=== PATIENT | male | born 1950 | race Caucasian/White ===

== ENCOUNTER 2017-09-28 13:26 | Emergency (ER) | payer OTHER ==
[2017-09-28] MEDS ORDERED: Sodium Chloride 0.9% 10 ML Syringe FLUSH PRN (13:38)
[2017-09-28] MEDS ORDERED: Furosemide 40 MG/4 ML VIAL IVPUSH ONE (13:39)
[2017-09-28] MEDS ORDERED: Albuterol/Ipratropium 3.0-0.5 MG/3 ML Neb Soln NEB ONE (13:39)
[2017-09-28 14:16] LABS: CHLORIDE,CL 103 mmol/L (98-107); SODIUM,NA 137 mmol/L (136-145)
[2017-09-28] MEDS ORDERED: cefTRIAXone 1 GM in Sodium Chloride 0.9% 100 ML IV ONE ×2 (14:47→16:29)
[2017-09-28] MEDS ORDERED: Azithromycin 500 MG in Sodium Chloride 0.9% 250 ML IV ONE (14:48)
[2017-09-28] MEDS ORDERED: Iopamidol 755 Mg/ML 100 ML Bottle IVPUSH ONE (14:57)
[2017-09-28] MEDS ORDERED: Morphine 10 MG/ML Syringe IVPUSH ONE (14:57)
--- NOTE | 2017-09-28 15:06 | EDM.PDOC ---
ED HPI GENERAL MEDICAL PROBLEM - General Chief Complaint: General Stated Complaint: fever, fall Time Seen by Provider: 09/28/17 13:27 Source of Information: Reports: Patient History Limitations: Reports: Other (vague with HPI/medical history) - History of Present Illness INITIAL COMMENTS - FREE TEXT/NARRATIVE: Patient comes in by EMS for complaint of not feeling well for "weeks". Has chronic daily cough but notes cough is worse today. Has felt chilled over this course of time but no fevers. Feels more SOB today. No report NEW pain today during initial interview after arrival. Does have baseline chronic back pain/ arthritis pain for which he takes Tylenol at home. Does not report increase in chronic pain level. Also reports decreased appetite in general although is now aware of specific weight loss. Has felt weaker in general and fell today at home. Later patient reported having some right hip discomfort despite initially denying any new pain/injuries. Patient is not on any other medications. Lives alone. History of prior CAD. "Nutritional condition". Denies smoking. Admits to drinking, vague on amount. Shrugged shoulders when asked if he drinks a lot of beer. Denies illegal drugs. 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 - Related Data Allergies Allergy/AdvReac Type Severity Reaction Status Date / Time Penicillins Allergy Cannot Verified 09/28/17 13:27 Remember Home Meds: Home Meds Acetaminophen [Tylenol] 325 mg PO Q4H PRN 09/28/17 [History] Past Medical History Cardiovascular History: Reports: Afib, CAD, PVD Respiratory History: Reports: Other (See Below) (Chronic right pleural effusion , chronic intermittent hemoptysis per patient) Gastrointestinal History: Reports: Other (See Below) (Chronic intermittent blood in stool per patient) Psychiatric History: Reports: Addiction (Suspect ETOH abuse) Social & Family History - Tobacco Use Smoking Status *Q: Former Smoker - Alcohol Use Alcohol Use History: Yes Days Per Week of Alcohol Use: 7 Alcohol Use in Last Twelve Months: Yes Alcohol Use Frequency: Daily Alcohol Use Comment: Shrugs shoulders when asked if he drinks excessively. - Living Situation & Occupation Living situation: Reports: Alone ED ROS GENERAL - Review of Systems Review Of Systems: See Below Constitutional: Reports: Chills, Malaise, Weakness, Fatigue, Decreased Appetite. Denies: Fever, Night Sweats, Diaphoresis HEENT: Reports: No Symptoms Respiratory: Reports: Shortness of Breath, Cough, Sputum, Hemoptysis (history of chronic intermittent hemoptysis). Denies: Pleuritic Chest Pain Cardiovascular: Denies: Chest Pain, Edema, Lightheadedness, Palpitations, Syncope GI/Abdominal: Reports: Hematochezia (chronic intermittent hematochezia, followed by [facility]). Denies: Abdominal Pain, Black Stool, Constipation, Diarrhea, Nausea, Vomiting Musculoskeletal: Reports: Other (No acute change on chronic baseline pain) Skin: Reports: Bruising (easily bruises) Neurological: Denies: Confusion, Headache, Numbness, Paresthesia, Tingling, Trouble Speaking, Gait Disturbance Psychiatric: Reports: No Symptoms Hematologic/Lymphatic: Reports: Easy Bruising Free Text/Narrative/Comment: After denying pain initially, patient later complained of right hip discomfort from his earlier fall to nurses after initial exam performed. ED EXAM, GENERAL - Physical Exam Exam: See Below Exam Limited By: No Limitations General Appearance: Alert, Other (poor personal hygiene, on oxygen, no acute distress) Eye Exam: Bilateral Eye: EOMI, PERRL Ears: Normal External Exam Nose: No: Nasal Deformity, Nasal Swelling, Nasal Drainage Throat/Mouth: Normal Lips, Normal Voice, No Airway Compromise, Other (poor dentition) Head: Atraumatic, Normocephalic Neck: Normal Inspection, Supple, Non-Tender, Full Range of Motion. No: Carotid Bruit, Lymphadenopathy (L), Lymphadenopathy (R) Respiratory/Chest: Chest Non-Tender, Crackles (bilateral), Rhonchi (bilateral), Wheezing (bilateral). No: Stridor, Accessory Muscle Use, Retractions Cardiovascular: Normal Peripheral Pulses, Regular Rate, Rhythm, No Edema, No Murmur Peripheral Pulses: 1+: Radial (L), Radial (R), Dorsalis Pedis (L), Dorsalis Pedis (R) GI/Abdominal: Normal Bowel Sounds, Soft, Non-Tender, No Distention (Male) Exam: Other (redness/rash noted around scrotal area) Rectal (Males) Exam: Deferred Back Exam: Normal Inspection. No: CVA Tenderness (L), CVA Tenderness (R) Extremities: Normal Range of Motion, Non-Tender, Normal Capillary Refill, Pedal Edema (bilateral, pittinng), Slow Capillary Refill (lower legs/feet), Increased Warmth (very mild, bilateral lower legs), Redness (bilateral lower legs/feet, patient says this is "normal" level of redness for him), Other (able to move both right and left leg, no focal tenderness noted pelvis/hips/thighs with palpation). No: Clement's Sign Neurological: Alert, Oriented, Normal Cognition, No Motor/Sensory Deficits Psychiatric: Normal Affect, Normal Mood Skin Exam: Warm, Dry, Intact, Ecchymosis (scattered bruises arms/hands), Erythema (bilateral lower extremities/groin area), Increased Warmth (very mild, lower legs) EKG INTERPRETATION EKG Date: 09/28/17 Time: 16:10 Rhythm: A-Fib Rate (Beats/Min): 137 P-Wave: Variable QRS: Other (small amplitude) ST-T: Other (no obvious ST elevation) Comparison: NA - No Prior EKG Course - Vital Signs Last Recorded V/S: Last Vital Signs Temp 38.3 C H 09/28/17 13:35 Pulse 64 09/28/17 13:35 Resp 20 09/28/17 13:35 BP 101/56 L 09/28/17 13:35 Pulse Ox 64 L 09/28/17 13:35 - Orders/Labs/Meds Orders: Active Orders 24 hr Category Date Time Status EKG Documentation Completion [RC] ASDIRECTED Care 09/28/17 16:03 Ordered RT Aerosol Therapy [RC] ASDIRECTED Care 09/28/17 13:40 Active RT Aerosol Therapy [RC] ASDIRECTED Care 09/28/17 15:06 Active Chest 2V [CR] Stat Exams 09/28/17 13:38 Ordered Hip Min 2V or 3V Rt [CR] Stat Exams 09/28/17 13:40 Taken PE Chest [Ang Chest] [CT] Stat Exams 09/28/17 14:52 Ordered CULTURE BLOOD [BC] Stat Lab 09/28/17 16:28 Ordered Albuterol/Ipratropium [DuoNeb 3.0-0.5 MG/3 ML] Med 09/28/17 15:15 Active 3 ml NEB Q1H Sodium Chloride 0.9% [Normal Saline] 1,000 ml Med 09/28/17 16:30 Ordered IV .BOLUS Sodium Chloride 0.9% [Normal Saline] 500 ml Med 09/28/17 15:30 Ordered IV .BOLUS Sodium Chloride 0.9% [Saline Flush] Med 09/28/17 13:38 Active 10 ml FLUSH ASDIRECTED PRN cefTRIAXone [Rocephin] 1 gm Med 09/28/17 16:29 Ordered Sodium Chloride 0.9% [Normal Saline] 100 ml IV ONETIME Blood Culture x2 Reflex Set [OM.PC] Stat Oth 09/28/17 16:28 Ordered Saline Lock Insert [OM.PC] Routine Oth 09/28/17 13:38 Ordered EKG 12 Lead [EK] Stat Ther 09/28/17 16:03 Ordered Medication Orders Albuterol/Ipratropium (Duoneb 3.0-0.5 Mg/3 Ml) 3 ml NEB Q1H KRYSTA Last Admin: 09/28/17 15:26 Dose: 3 ml Sodium Chloride (Normal Saline) 500 mls @ 999 mls/hr IV .BOLUS KRYSTA Last Admin: 09/28/17 15:38 Dose: 999 mls/hr Ceftriaxone Sodium 1 gm/ (Sodium Chloride) 100 mls @ 200 mls/hr IV ONETIME ONE Stop: 09/28/17 16:58 Last Admin: 09/28/17 16:43 Dose: 200 mls/hr Sodium Chloride (Normal Saline) 1,000 mls @ 999 mls/hr IV .BOLUS ONE Stop: 09/28/17 17:30 Last Admin: 09/28/17 16:34 Dose: 999 mls/hr Sodium Chloride (Saline Flush) 10 ml FLUSH ASDIRECTED PRN PRN Reason: Keep Vein Open Labs: Laboratory Tests 09/28/17 09/28/17 09/28/17 Range/Units 13:40 13:50 13:50 WBC 11.5 H (4.0-10.2) K/uL RBC 4.13 L (4.33-5.41) M/uL Hgb 12.8 L (13.1-16.8) g/dL Hct 38.1 L (39.0-49.0) % MCV 92.3 (84.0-98.0) fL MCH 31.0 (28.2-33.3) pg MCHC 33.6 (31.7-36.0) g/dL RDW 15.8 H (11.2-14.1) % Plt Count 153 (150-350) K/uL Neut % (Auto) 91.5 H (45.0-80.0) % Lymph % (Auto) 0.9 L (10.0-50.0) % [place] % (Auto) 7.5 (2.0-14.0) % Eos % (Auto) 0.0 (0.0-5.0) % Baso % (Auto) 0.1 (0.0-2.0) % Neut # (Auto) 10.52 H (1.40-7.00) K/uL Lymph # (Auto) 0.10 L (0.50-3.50) K/uL [place] # (Auto) 0.86 (0.00-1.00) K/uL Eos # (Auto) 0.00 (0.00-0.50) K/uL Baso # (Auto) 0.01 (0.00-0.20) K/uL PT (9.8-11.7) SEC INR D-Dimer, Quantitative (0-400) ng/mL Sodium 137 (136-145) mmol/L Potassium 3.4 L (3.5-5.1) mmol/L Chloride 103 (98-107) mmol/L Carbon Dioxide 22.7 (21.0-32.0) mmol/L BUN 6 L (7-18) mg/dL Creatinine 0.78 (0.51-1.17) mg/dL Est Cr Clr Drug Dosing 83.57 mL/min Estimated GFR (MDRD) > 60 mL/min Glucose 83 (74-106) mg/dL Lactic Acid (0.4-2.0) mmol/L Calcium 7.7 L (8.5-10.1) mg/dL Total Bilirubin 2.0 H (0.2-1.0) mg/dL AST 21 (15-37) U/L ALT 17 (12-78) U/L Alkaline Phosphatase 153 H (46-116) IU/L NT-Pro-B Natriuret Pep 2673 H (0-125) pg/mL Total Protein 6.7 (6.4-8.2) g/dL Albumin 2.5 L (3.4-5.0) g/dL Ethyl Alcohol 0.000 (0.000-0.080) g/dL 09/28/17 09/28/17 09/28/17 Range/Units 13:50 13:50 13:50 WBC (4.0-10.2) K/uL RBC (4.33-5.41) M/uL Hgb (13.1-16.8) g/dL Hct (39.0-49.0) % MCV (84.0-98.0) fL MCH (28.2-33.3) pg MCHC (31.7-36.0) g/dL RDW (11.2-14.1) % Plt Count (150-350) K/uL Neut % (Auto) (45.0-80.0) % Lymph % (Auto) (10.0-50.0) % [place] % (Auto) (2.0-14.0) % Eos % (Auto) (0.0-5.0) % Baso % (Auto) (0.0-2.0) % Neut # (Auto) (1.40-7.00) K/uL Lymph # (Auto) (0.50-3.50) K/uL [place] # (Auto) (0.00-1.00) K/uL Eos # (Auto) (0.00-0.50) K/uL Baso # (Auto) (0.00-0.20) K/uL PT 15.3 H (9.8-11.7) SEC INR 1.4 D-Dimer, Quantitative 723 H (0-400) ng/mL Sodium (136-145) mmol/L Potassium (3.5-5.1) mmol/L Chloride (98-107) mmol/L Carbon Dioxide (21.0-32.0) mmol/L BUN (7-18) mg/dL Creatinine (0.51-1.17) mg/dL Est Cr Clr Drug Dosing mL/min Estimated GFR (MDRD) mL/min Glucose (74-106) mg/dL Lactic Acid 4.9 H (0.4-2.0) mmol/L Calcium (8.5-10.1) mg/dL Total Bilirubin (0.2-1.0) mg/dL AST (15-37) U/L ALT (12-78) U/L Alkaline Phosphatase (46-116) IU/L NT-Pro-B Natriuret Pep (0-125) pg/mL Total Protein (6.4-8.2) g/dL Albumin (3.4-5.0) g/dL Ethyl Alcohol (0.000-0.080) g/dL Meds: Medications Generic Name Dose Route Start Last Admin Trade Name Jessie PRN Reason Stop Dose Admin Albuterol/Ipratropium 3 ml 09/28/17 15:15 09/28/17 15:26 Duoneb 3.0-0.5 Mg/3 Ml NEB 3 ml Q1H KRYSTA Administration Sodium Chloride 500 mls @ 999 mls/hr 09/28/17 15:30 09/28/17 15:38 Normal Saline IV 999 mls/hr .BOLUS KRYSTA Administration Ceftriaxone Sodium 1 gm/ 100 mls @ 200 mls/hr 09/28/17 16:29 09/28/17 16:43 Sodium Chloride IV 09/28/17 16:58 200 mls/hr ONETIME ONE Administration Sodium Chloride 1,000 mls @ 999 mls/hr 09/28/17 16:30 09/28/17 16:34 Normal Saline IV 09/28/17 17:30 999 mls/hr .BOLUS ONE Administration Sodium Chloride 10 ml 09/28/17 13:38 Saline Flush FLUSH ASDIRECTED PRN Keep Vein Open Discontinued Medications Generic Name Dose Route Start Last Admin Trade Name Jessie PRN Reason Stop Dose Admin Albuterol/Ipratropium 3 ml 09/28/17 13:39 09/28/17 13:59 Duoneb 3.0-0.5 Mg/3 Ml NEB 09/28/17 13:40 3 ml ONETIME ONE Administration Diltiazem HCl 20 mg 09/28/17 16:02 09/28/17 16:24 Diltiazem IVPUSH 09/28/17 16:03 Not Given ONETIME ONE Furosemide 20 mg 09/28/17 13:39 09/28/17 13:59 Lasix IVPUSH 09/28/17 13:40 20 mg NOW ONE Administration Azithromycin 500 mg/ Sodium 250 mls @ 250 mls/hr 09/28/17 14:48 09/28/17 16: 15 Chloride IV 09/28/17 15:47 250 mls/hr ONETIME ONE Administration Ceftriaxone Sodium 1 gm/ 100 mls @ 200 mls/hr 09/28/17 14:47 09/28/17 15:07 Sodium Chloride IV 09/28/17 15:16 200 mls/hr ONETIME ONE Administration Lactated Ringer's 1,000 mls @ 999 mls/hr 09/28/17 16:11 09/28/17 16:25 Ringers, Lactated IV 09/28/17 17:11 999 mls/hr .BOLUS ONE Administration Iopamidol 100 ml 09/28/17 14:57 Isovue-370 (76%) IVPUSH 09/28/17 14:58 ONETIME ONE Morphine Sulfate 5 mg 09/28/17 14:57 09/28/17 15:13 Morphine IVPUSH 09/28/17 14:58 5 mg ONETIME ONE Administration Ondansetron HCl 4 mg 09/28/17 15:19 09/28/17 15:26 Zofran IVPUSH 09/28/17 15:20 Not Given ONETIME ONE Ondansetron HCl 4 mg 09/28/17 15:23 09/28/17 15:26 Zofran IVPUSH 09/28/17 15:24 4 mg ONETIME ONE Administration - Radiology Interpretation Free Text/Narrative:: Chest xray showed large right sided pleural effusion, poorly defined cardiac border. No obvious fracture of right hip. - Re-Assessments/Exams Free Text/Narrative Re-Assessment/Exam: 09/28/17 16:13 Patient noted to have fever as well as audible wheezing/rhonchi upon arrival. Initially on NC O2 at 8L. Weaned to 4L after receiving DuoNeb treatments. Mildly elevated WBC with left shift. Elevated Lactic acid. Elevated DDimer and BNP. Patient did not give history of previous cardiac problems during initial interview. Later during stay said that he was told he had Afib in the past when this was noted on the monitor. Heart rate more elevated after neb treatments. Patient stated to staff that he usually has lower than average BP. 105/56 noted after arrival and patient said this was normal for him. This dropped to 90s/high 80s after patient received single dose of morphine for pain complaint ( diffuse general pain/back pain complaint per patient...again initially came to ER stating that he had no new pain or worsening of usual pain). Single bolus IV NS given. Due to suspected pneumonia in addition to the chronic right pleural effusion, Rocephin and Zithromax IV given. Patient does feel that his lower legs are "normal" in appearance for him. Says that [facility] has performed US studies and has looked at his legs "but didn't tell him anything" about them and what can be done. Cannot rule out cellulitis however given the redness and swelling/changes observed. PE study ordered given elevated DDImer and SOB complaints. Unable to perform given persistently elevated heart rate/current vital signs. Call placed to [facility] and patient discussed with hospitalist . We eventually received a call back from them with recommendation to send patient to [facility] when it was noted that they did not have available staff this evening to perform thoracentesis as well as possible ICU bed requirement need. Call then placed to [facility]. Reviewed patient with who accepted the patient in transfer. No additional treatment recommendations Additional 1gm Rocephin given to comply with treatment protocol on file from [facility] for suspected sepsis. Lung sounds overall improved as well as improved oxygenation over course of stay. Heart rate improved with IV fluid boluses however it remained elevated. BP remained low but stable. Free Text/Narrative Re-Assessment/Exam: 09/28/17 17:00 Unable to arrange for ground transport due to primary EMS unit already in [place] for previous transfer. To avoid several hour delay in transfer given patient's persistent tachycardia/low BP and presumed sepsis, air transport arranged. Departure - Departure Time of Disposition: 17:05 Disposition: DC/Tfer to [facility] Condition: Fair Clinical Impression: Pneumonia, Peripheral vascular disease, Shortness of breath, Pleural effusion, Elevated lactic acid level, Other skin changes, Atrial fibrillation with RVR Hypotension Qualifiers: Hypotension type: unspecified hypotension type Qualified Code(s): I95.9 - Hypotension, unspecified - Discharge Information Referrals: PCP,Unknown [Primary Care Provider] - Forms: ED Department Discharge - My Orders Last 24 Hours: My Active Orders 09/28/17 13:38 Chest 2V [CR] Stat Sodium Chloride 0.9% [Saline Flush] 10 ml FLUSH ASDIRECTED PRN Saline Lock Insert [OM.PC] Routine 09/28/17 13:40 RT Aerosol Therapy [RC] ASDIRECTED Hip Min 2V or 3V Rt [CR] Stat 09/28/17 14:52 PE Chest [Ang Chest] [CT] Stat 09/28/17 15:06 RT Aerosol Therapy [RC] ASDIRECTED 09/28/17 15:15 Albuterol/Ipratropium [DuoNeb 3.0-0.5 MG/3 ML] 3 ml NEB Q1H 09/28/17 15:30 Sodium Chloride 0.9% [Normal Saline] 500 ml IV .BOLUS 09/28/17 16:03 EKG Documentation Completion [RC] ASDIRECTED EKG 12 Lead [EK] Stat 09/28/17 16:28 CULTURE BLOOD [BC] Stat Blood Culture x2 Reflex Set [OM.PC] Stat 09/28/17 16:29 cefTRIAXone [Rocephin] 1 gm Sodium Chloride 0.9% [Normal Saline] 100 ml IV ONETIME 09/28/17 16:30 Sodium Chloride 0.9% [Normal Saline] 1,000 ml IV .BOLUS - Assessment/Plan Last 24 Hours: My Active Orders 09/28/17 13:38 Chest 2V [CR] Stat Sodium Chloride 0.9% [Saline Flush] 10 ml FLUSH ASDIRECTED PRN Saline Lock Insert [OM.PC] Routine 09/28/17 13:40 RT Aerosol Therapy [RC] ASDIRECTED Hip Min 2V or 3V Rt [CR] Stat 09/28/17 14:52 PE Chest [Ang Chest] [CT] Stat 09/28/17 15:06 RT Aerosol Therapy [RC] ASDIRECTED 09/28/17 15:15 Albuterol/Ipratropium [DuoNeb 3.0-0.5 MG/3 ML] 3 ml NEB Q1H 09/28/17 15:30 Sodium Chloride 0.9% [Normal Saline] 500 ml IV .BOLUS 09/28/17 16:03 EKG Documentation Completion [RC] ASDIRECTED EKG 12 Lead [EK] Stat 09/28/17 16:28 CULTURE BLOOD [BC] Stat Blood Culture x2 Reflex Set [OM.PC] Stat 09/28/17 16:29 cefTRIAXone [Rocephin] 1 gm Sodium Chloride 0.9% [Normal Saline] 100 ml IV ONETIME 09/28/17 16:30 Sodium Chloride 0.9% [Normal Saline] 1,000 ml IV .BOLUS
[2017-09-28] MEDS ORDERED: Albuterol/Ipratropium 3.0-0.5 MG/3 ML Neb Soln NEB SCH (15:15)
[2017-09-28] MEDS ORDERED: Ondansetron 4 MG/2 ML SDV IVPUSH ONE ×2 (15:19→15:23)
[2017-09-28] MEDS ORDERED: Sodium Chloride 0.9% 500 ML IV SCH (15:30)
[2017-09-28] MEDS ORDERED: Diltiazem 25 MG/5 ML SDV IVPUSH ONE (16:02)
[2017-09-28] MEDS ORDERED: Lactated Ringers 1,000 ML IV ONE (16:11)
[2017-09-28] MEDS ORDERED: Sodium Chloride 0.9% 1,000 ML IV ONE (16:30)
== END 2017-09-28 17:36 ==
LOC: LL.ED 13:26
DX: J18.9 Pneumonia, unspecified organism (principal); J90 Pleural effusion, not elsewhere classified; I48.91 Unspecified atrial fibrillation; I95.9 Hypotension, unspecified; I73.9 Peripheral vascular disease, unspecified; R74.0 Nonspecific elevation of levels of transaminase and lactic acid dehydrogenase [LDH]; Z88.0 Allergy status to penicillin; Z87.891 Personal history of nicotine dependence
CPT/HCPCS: 36415; 71046; 80053; 81001; 83605; 83880; 85025; 85379; 85610; 87040; 93005; 94640; 96361; 96365; 96367; 96375; 99285; G0480; J0456; J0696; J1940; J2270; J2405; J7030; J7040; J7050; J7120

== ENCOUNTER 2017-10-18 09:45 | Emergency (ER) | payer MEDICARE, OTHER ==
[2017-10-18 10:12] LABS: O2 DELIVERY DEVICE NASAL CANNULA
[2017-10-18 10:15] LABS: BASE EXCESS ARTERIAL 5 mmol/L (-2-3); BICARBONATE,ARTERIAL 28.1 mmol/L (22-26); O2 SATURATION ARTERIAL 95 % (95-98); PCO2 ARTERIAL 35 mmHG (35-45); PO2 ARTERIAL 68 mmHG (80-105)
--- NOTE | 2017-10-18 10:15 | EDM.PDOC ---
ED HPI GENERAL MEDICAL PROBLEM - General Chief Complaint: Cardiovascular Problem Stated Complaint: shortness of breath Time Seen by Provider: 10/18/17 10:05 Source of Information: Reports: Patient, Other ([facility] staff) History Limitations: Reports: No Limitations - History of Present Illness INITIAL COMMENTS - FREE TEXT/NARRATIVE: Patient comes to ER by private vehicle for evaluation of SOB/low O2 sats. SOB has been present for several days. Mild brief central chest pain once yesterday , otherwise no new pain complaints/changes. No fevers. No cough/sputum. Denies other changes. Has history or pleural effusions which mostly have affected his right lung. Has had over 1L of fluid drained several times over the past month. Patient was seen at our facility September 28 for similar complaint and ultimately was flown to [facility] for care due to signs suggesting sepsis. At that time he was living on his own. Onset: Gradual - Related Data Allergies Allergy/AdvReac Type Severity Reaction Status Date / Time Penicillins Allergy Cannot Verified 09/28/17 13:27 Remember Home Meds: Home Meds Acetaminophen [Tylenol] 650 mg PO Q6HR PRN 09/28/17 [History] Albuterol/Ipratropium [DuoNeb 3.0-0.5 MG/3 ML] 1 inh INH Q12H PRN 10/18/17 [ History] Amiodarone [Cordarone] 200 mg PO DAILY 10/18/17 [History] Aspirin 81 mg PO DAILY 10/18/17 [History] Budesonide [Pulmicort] 1 inh INH Q12HR PRN 10/18/17 [History] Bumetanide [Bumex] 2 mg PO BID 10/18/17 [History] Metoprolol Succinate [Toprol XL] 12.5 mg PO DAILY 10/18/17 [History] Potassium Chloride 20 meq PO BID 10/18/17 [History] Ranitidine HCl [Zantac] 150 mg PO DAILY 10/18/17 [History] Rivaroxaban [Xarelto] 15 mg PO DAILY 10/18/17 [History] Sennosides/Docusate Sodium [Senna Plus Tablet] 1 tab PO Q12HR PRN 10/18/17 [ History] atorvaSTATin Calcium [Atorvastatin Calcium] 10 mg PO DAILY 10/18/17 [History] Past Medical History Cardiovascular History: Reports: Afib, CAD, PVD Respiratory History: Reports: Other (See Below) (Chronic right pleural effusion , chronic intermittent hemoptysis per patient) Gastrointestinal History: Reports: Other (See Below) (Chronic intermittent blood in stool per patient) Other Gastrointestinal History: blood in stool when having bm QOD Psychiatric History: Reports: Addiction (Suspect ETOH abuse) Other Psychiatric History: alcohol - Past Surgical History Respiratory Surgical History: Reports: None GI Surgical History: Reports: None Social & Family History - Caffeine Use Caffeine Use: Reports: None - Alcohol Use Alcohol Use History: Yes Days Per Week of Alcohol Use: 7 Number of Drinks Per Day: 8 Number of Drinks Per Day Comment: very vague on amount of daily ETOH. Drinks only at the local bar. If no game on, drinks less. If there is a game, drinks more. 8-12 beers estimate based on conversation. Total Drinks Per Week: 56 Alcohol Use in Last Twelve Months: Yes Alcohol Use Frequency: Daily - Living Situation & Occupation Living situation: Reports: Alone ED ROS GENERAL - Review of Systems Review Of Systems: See Below Constitutional: Reports: No Symptoms HEENT: Reports: No Symptoms Respiratory: Reports: Shortness of Breath. Denies: Wheezing, Pleuritic Chest Pain, Cough, Sputum, Hemoptysis Cardiovascular: Reports: Chest Pain, Dyspnea on Exertion, Edema (chronic). Denies: Blood Pressure Problem, Lightheadedness, Palpitations, Syncope GI/Abdominal: Reports: No Symptoms : Reports: No Symptoms Musculoskeletal: Reports: Other (chronic joint pain/back pain. ) Skin: Reports: Bruising (has some old bruising from recent IVs/forearms), Change in Color (chronic dusky coloration/edema bilateral lower legs) Neurological: Denies: Confusion, Dizziness, Headache, Numbness, Syncope, Change in Speech Psychiatric: Reports: No Symptoms ED EXAM, GENERAL - Physical Exam Exam: See Below Exam Limited By: No Limitations General Appearance: Alert, WD/WN, No Apparent Distress Eye Exam: Bilateral Eye: EOMI, PERRL Ears: Normal External Exam Nose: No: Nasal Deformity, Nasal Swelling, Nasal Drainage Throat/Mouth: Normal Lips, Normal Voice, No Airway Compromise Head: Atraumatic, Normocephalic Neck: Supple, Full Range of Motion Respiratory/Chest: No Respiratory Distress, Decreased Breath Sounds (Right mid/ lower lung), Crackles (right upper lung). No: Rhonchi, Wheezing, Stridor, Accessory Muscle Use, Retractions Cardiovascular: No Murmur, Tachycardia Peripheral Pulses: 1+: Radial (L), Radial (R) GI/Abdominal: Normal Bowel Sounds, Soft, Non-Tender, No Distention (Male) Exam: Deferred Rectal (Males) Exam: Deferred Back Exam: No: CVA Tenderness (L), CVA Tenderness (R) Extremities: Pedal Edema (mild, bilateral). No: Increased Warmth Neurological: Alert, Oriented, CN II-XII Intact, Normal Cognition, Other (equal strength/tone bilaterally) Psychiatric: Normal Affect, Normal Mood Skin Exam: Warm, Dry, Other EKG INTERPRETATION EKG Date: 10/18/17 Time: 09:52 Rhythm: A-Fib Rate (Beats/Min): 117 [place]: Normal P-Wave: Absent QRS: Other (low amplitude) ST-T: Normal QT: Normal Comparison: No Change Course - Vital Signs Last Recorded V/S: Last Vital Signs Temp 36.4 C 10/18/17 09:54 Pulse 115 H 10/18/17 11:17 Resp 22 H 10/18/17 11:17 BP 109/83 10/18/17 11:17 Pulse Ox 100 10/18/17 11:17 - Orders/Labs/Meds Orders: Active Orders 24 hr Category Date Time Status EKG Documentation Completion [RC] ASDIRECTED Care 10/18/17 09:51 Active RT Aerosol Therapy [RC] ASDIRECTED Care 10/18/17 10:03 Active Chest 1V Frontal [CR] Stat Exams 10/18/17 09:51 Ordered CULTURE BLOOD [BC] Stat Lab 10/18/17 09:57 Ordered CULTURE BLOOD [BC] Stat Lab 10/18/17 09:57 Ordered Sodium Chloride 0.9% [Saline Flush] Med 10/18/17 10:46 Active 10 ml FLUSH ASDIRECTED PRN Blood Culture x2 Reflex Set [OM.PC] Stat Oth 10/18/17 09:57 Ordered Saline Lock Insert [OM.PC] Routine Oth 10/18/17 10:46 Ordered Medication Orders Sodium Chloride (Saline Flush) 10 ml FLUSH ASDIRECTED PRN PRN Reason: Keep Vein Open Last Admin: 10/18/17 10:51 Dose: 10 ml Labs: Laboratory Tests 10/18/17 10/18/17 10/18/17 Range/Units 10:00 10:00 10:00 WBC 6.3 (4.0-10.2) K/uL RBC 3.42 L (4.33-5.41) M/uL Hgb 10.3 L D (13.1-16.8) g/dL Hct 32.6 L (39.0-49.0) % MCV 95.3 D (84.0-98.0) fL MCH 30.1 (28.2-33.3) pg MCHC 31.6 L (31.7-36.0) g/dL RDW 15.0 H (11.2-14.1) % Plt Count 413 H D (150-350) K/uL Neut % (Auto) 66.8 (45.0-80.0) % Lymph % (Auto) 14.6 (10.0-50.0) % [place] % (Auto) 13.9 (2.0-14.0) % Eos % (Auto) 3.6 (0.0-5.0) % Baso % (Auto) 1.1 (0.0-2.0) % Neut # (Auto) 4.21 (1.40-7.00) K/uL Lymph # (Auto) 0.92 (0.50-3.50) K/uL [place] # (Auto) 0.88 (0.00-1.00) K/uL Eos # (Auto) 0.23 (0.00-0.50) K/uL Baso # (Auto) 0.07 (0.00-0.20) K/uL ABG pH (7.35-7.45) ABG pCO2 (35-45) mmHG ABG pO2 (80-105) mmHG ABG HCO3 (22-26) mmol/L ABG Total CO2 (23-27) mmol/L ABG O2 Saturation (95-98) % ABG Base Excess (-2-3) mmol/L O2 Delivery Device Sodium 140 (136-145) mmol/L Potassium 3.8 (3.5-5.1) mmol/L Chloride 100 (98-107) mmol/L Carbon Dioxide 30.0 (21.0-32.0) mmol/L BUN 13 (7-18) mg/dL Creatinine 0.97 (0.51-1.17) mg/dL Est Cr Clr Drug Dosing TNP Estimated GFR (MDRD) > 60 mL/min Glucose 135 H (74-106) mg/dL Lactic Acid 3.5 H (0.4-2.0) mmol/L Calcium 9.0 (8.5-10.1) mg/dL Total Bilirubin 1.0 (0.2-1.0) mg/dL AST 17 (15-37) U/L ALT 22 (12-78) U/L Alkaline Phosphatase 138 H (46-116) IU/L Troponin I 0.000 (0.000-0.056) ng/mL NT-Pro-B Natriuret Pep 3442 H (0-125) pg/mL Total Protein 8.7 H (6.4-8.2) g/dL Albumin 2.7 L (3.4-5.0) g/dL 10/18/17 Range/Units 10:07 WBC (4.0-10.2) K/uL RBC (4.33-5.41) M/uL Hgb (13.1-16.8) g/dL Hct (39.0-49.0) % MCV (84.0-98.0) fL MCH (28.2-33.3) pg MCHC (31.7-36.0) g/dL RDW (11.2-14.1) % Plt Count (150-350) K/uL Neut % (Auto) (45.0-80.0) % Lymph % (Auto) (10.0-50.0) % [place] % (Auto) (2.0-14.0) % Eos % (Auto) (0.0-5.0) % Baso % (Auto) (0.0-2.0) % Neut # (Auto) (1.40-7.00) K/uL Lymph # (Auto) (0.50-3.50) K/uL [place] # (Auto) (0.00-1.00) K/uL Eos # (Auto) (0.00-0.50) K/uL Baso # (Auto) (0.00-0.20) K/uL ABG pH 7.52 H* (7.35-7.45) ABG pCO2 35 (35-45) mmHG ABG pO2 68 L* (80-105) mmHG ABG HCO3 28.1 H (22-26) mmol/L ABG Total CO2 29 H (23-27) mmol/L ABG O2 Saturation 95 (95-98) % ABG Base Excess 5 H (-2-3) mmol/L O2 Delivery Device Nasal cannula Sodium (136-145) mmol/L Potassium (3.5-5.1) mmol/L Chloride (98-107) mmol/L Carbon Dioxide (21.0-32.0) mmol/L BUN (7-18) mg/dL Creatinine (0.51-1.17) mg/dL Est Cr Clr Drug Dosing Estimated GFR (MDRD) mL/min Glucose (74-106) mg/dL Lactic Acid (0.4-2.0) mmol/L Calcium (8.5-10.1) mg/dL Total Bilirubin (0.2-1.0) mg/dL AST (15-37) U/L ALT (12-78) U/L Alkaline Phosphatase (46-116) IU/L Troponin I (0.000-0.056) ng/mL NT-Pro-B Natriuret Pep (0-125) pg/mL Total Protein (6.4-8.2) g/dL Albumin (3.4-5.0) g/dL Meds: Medications Generic Name Dose Route Start Last Admin Trade Name Freq PRN Reason Stop Dose Admin Sodium Chloride 10 ml 10/18/17 10:46 10/18/17 10:51 Saline Flush FLUSH 10 ml ASDIRECTED PRN Administration Keep Vein Open Discontinued Medications Generic Name Dose Route Start Last Admin Trade Name Freq PRN Reason Stop Dose Admin Albuterol/Ipratropium 3 ml 10/18/17 10:03 Duoneb 3.0-0.5 Mg/3 Ml NEB 10/18/17 10:04 ONETIME ONE Furosemide 40 mg 10/18/17 10:33 10/18/17 10:45 Lasix IVPUSH 10/18/17 10:34 40 mg NOW ONE Administration - Radiology Interpretation Free Text/Narrative:: Chest xray shows continued changes in right lung/pleural effusion as well as CHF. Cannot rule out mass or infection on right side. No noted pneumothorax - Re-Assessments/Exams Free Text/Narrative Re-Assessment/Exam: 10/18/17 11:35 Suspect patient's symptoms are due to exacerbation of chronic right sided pleural effusion. WBC normal, no fevers/productive cough. Antibiotics not initiated at this time. Blood gas showed pH of 7.52 on 2L NC O2. PO2 68 Hgb 10.3 Plts 413 Normal AST and ALT Normal Troponin Elevated BNP Lactic acid elevated at 3.5 Patient does appear to have consistently and persistently elevated lactic acid after discussion with [facility] and review of labs performed over multiple visits. Patient given DuoNeb as well as Lasix. Vital signs remained stable. Sats 100% and respiratory rate 19-20 if patient allowed to lay on bed and rest. Noted to desat into high 80s if he tried to get up and move. Patient was comfortable with holding continuous conversation with staff and friend. Call placed to CT and we were told that there were no beds available by Jazmyn , transportation coordinator. Call then placed to [facility] and patient was discussed with , hospitalist. Plan at this time is to send patient to their facility for admission and treatment of his pleural effusion/pulmonary complaints. Departure - Departure Time of Disposition: 11:43 Disposition: DC/Tfer to Acute Hospital 02 Reason for Transfer *Q: Other Condition: Good Clinical Impression: Atrial fibrillation with RVR, Pleural effusion, Elevated lactic acid level, Shortness of breath CHF (congestive heart failure) Qualifiers: Heart failure type: unspecified Heart failure chronicity: chronic Qualified Code(s): I50.9 - Heart failure, unspecified Referrals: Sheets-Nichelle Phelan MD [Primary Care Provider] - Forms: ED Department Discharge - My Orders Last 24 Hours: My Active Orders 10/18/17 09:51 EKG Documentation Completion [RC] ASDIRECTED Chest 1V Frontal [CR] Stat 10/18/17 09:57 CULTURE BLOOD [BC] Stat CULTURE BLOOD [BC] Stat Blood Culture x2 Reflex Set [OM.PC] Stat 10/18/17 10:03 RT Aerosol Therapy [RC] ASDIRECTED 10/18/17 10:46 Sodium Chloride 0.9% [Saline Flush] 10 ml FLUSH ASDIRECTED PRN Saline Lock Insert [OM.PC] Routine - Assessment/Plan Last 24 Hours: My Active Orders 10/18/17 09:51 EKG Documentation Completion [RC] ASDIRECTED Chest 1V Frontal [CR] Stat 10/18/17 09:57 CULTURE BLOOD [BC] Stat CULTURE BLOOD [BC] Stat Blood Culture x2 Reflex Set [OM.PC] Stat 10/18/17 10:03 RT Aerosol Therapy [RC] ASDIRECTED 10/18/17 10:46 Sodium Chloride 0.9% [Saline Flush] 10 ml FLUSH ASDIRECTED PRN Saline Lock Insert [OM.PC] Routine
[2017-10-18 10:32] LABS: CHLORIDE,CL 100 mmol/L (98-107); SODIUM,NA 140 mmol/L (136-145)
[2017-10-18] MEDS: Furosemide 40 MG/4 ML VIAL IVPUSH ONE (10:45)
[2017-10-18] MEDS: Sodium Chloride 0.9% 10 ML Syringe FLUSH PRN (10:51)
[2017-10-18] MEDS: Albuterol/Ipratropium 3.0-0.5 MG/3 ML Neb Soln NEB ONE (12:07)
== END 2017-10-18 12:05 ==
LOC: LL.ED 09:45
DX: I50.9 Heart failure, unspecified (principal); I48.91 Unspecified atrial fibrillation; R74.0 Nonspecific elevation of levels of transaminase and lactic acid dehydrogenase [LDH]; J90 Pleural effusion, not elsewhere classified; Z88.0 Allergy status to penicillin; Z79.82 Long term (current) use of aspirin; Z79.899 Other long term (current) drug therapy
CPT/HCPCS: 36415; 71045; 80053; 82803; 83605; 83880; 84484; 85025; 87040; 93005; 96374; 99285; J1940; J7050